=== PATIENT | male | born 1980 | race Caucasian/White ===

== ENCOUNTER 2018-01-30 08:29 | Emergency (ER) | payer OTHER ==
[2018-01-30] MEDS: KETOROLAC 30 MG/ML VIAL (J1885) IV (09:26)
[2018-01-30] MEDS: LORazepam 2 MG/ML VIAL (J2060) IV (09:26)
[2018-01-30] MEDS: ONDANSETRON 4MG/2ML VIAL (J2405) IV (09:26)
[2018-01-30] MEDS: PERCOCET 5MG/325MG TAB PO (10:53)
[2018-01-30] MEDS: MORPHINE 4 MG/ML 1ML VIAL/SYRINGE (J2270) IV (11:19)
[2018-01-30] MEDS: HYDROmorphone HCL 1 MG/ML SYRINGE (J1170) IV (11:52)
== END 2018-01-30 12:59 | disposition home or self-care (01) ==
LOC: M ED 08:29
DX: S39.002A Unspecified injury of muscle, fascia and tendon of lower back, initial encounter (principal); W01.0XXA Fall on same level from slipping, tripping and stumbling without subsequent striking against object, initial encounter; Y92.511 Restaurant or cafe as the place of occurrence of the external cause
CPT/HCPCS: J1170

== ENCOUNTER 2018-03-25 17:10 | Emergency (ER) | payer OTHER ==
[2018-03-25] MEDS: EMLA CREAM 5GM (LIDOCAINE/PRILOCAINE) TOP (17:36)
== END 2018-03-25 18:20 | disposition home or self-care (01) ==
LOC: M ED 17:10
DX: S01.01XA Laceration without foreign body of scalp, initial encounter (principal); W22.8XXA Striking against or struck by other objects, initial encounter; Y92.098 Other place in other non-institutional residence as the place of occurrence of the external cause
CPT/HCPCS: 12001